=== PATIENT | male | born 1975 | race Two or more races ===

== ENCOUNTER 2022-07-02 13:44 | Inpatient (IN) | payer OTHER ==
[2022-07-02 14:18] VITALS: BMI 30.2
[2022-07-02] MEDS ORDERED: DICYCLOMINE HCL 10 MG CAPSULE PO PRN (15:04)
[2022-07-02] MEDS ORDERED: NICOTINE 10 MG CARTRIDGE (INHALER) IH PRN (15:04)
[2022-07-02] MEDS ORDERED: hydrOXYzine PAMOATE 25 MG CAPSULE (FP) PO PRN (15:04)
[2022-07-02] MEDS ORDERED: POLYETHYLENE GLYCOL (HEALTHYLAX) 3350 17 GM PACKET PO PRN (15:04)
[2022-07-02] MEDS ORDERED: MAGNESIUM HYDROX 2400MG/30ML ORAL SUSPENSION 30 ML CUP PO PRN (15:04)
[2022-07-02] MEDS ORDERED: NALOXONE HCL (KLOXXADO) 8 MG SPRAY NS PRN (15:04)
[2022-07-02] MEDS ORDERED: guaiFENesin 600 MG TABLET.ER (FP) PO PRN (15:04)
[2022-07-02] MEDS ORDERED: MAG HYDROX/AL HYDROX/SIMETH 30 ML UNIT-DOSE CUP PO PRN (15:04)
[2022-07-02] MEDS ORDERED: LOPERAMIDE HCL 2 MG CAPSULE PO PRN (15:04)
[2022-07-02] MEDS ORDERED: BENZONATATE 200 MG CAPSULE PO PRN (15:04)
[2022-07-02] MEDS ORDERED: BENZOCAINE/MENTHOL (CHLORASEPTIC ) LOZENGE MM PRN (15:04)
[2022-07-02] MEDS ORDERED: IBUPROFEN 400 MG TABLET (FP) PO PRN (15:04)
[2022-07-02] MEDS ORDERED: ONDANSETRON *ODT* 4 MG TABLET SL PRN (15:04)
[2022-07-02] MEDS ORDERED: LORazepam 1 MG TABLET PO PRN (15:04)
[2022-07-02] MEDS ORDERED: NALOXONE HCL 0.4 MG/ML VIAL IM PRN (15:04)
[2022-07-02] MEDS ORDERED: BISMUTH SUBSALICYLATE 524 MG/30 ML PO PRN (15:04)
[2022-07-02] MEDS ORDERED: ACETAMINOPHEN 325 MG TABLET (FP) PO PRN (15:04)
[2022-07-02] MEDS ORDERED: PATIENT'S OWN MEDICATION (NON-FORMULARY) (Insulin Lispro [Admelog Solostar] 100 UNIT/ML In SQ SCH (15:30)
[2022-07-02] MEDS ORDERED: INSULIN (NOVOLOG) ASPART 100 UNITS/ML 10ML VIAL SQ ONE (15:34)
[2022-07-02] MEDS ORDERED: PRENATAL VITAMINS W/ FOLIC ACID TABLET (FP) PO ONE (15:40)
[2022-07-02] MEDS ORDERED: NICOTINE 14 MG/24 HOURS TOPICAL PATCH TD SCH (15:45)
[2022-07-02] MEDS ORDERED: INSULIN (NOVOLOG) ASPART 100 UNITS/ML 10ML VIAL ONE ×2 (15:45→17:36)
[2022-07-02] MEDS: PRENATAL VITAMINS W/ FOLIC ACID TABLET (FP) PO SCH (15:50)
[2022-07-02] MEDS ORDERED: LORazepam 2 MG TABLET ONE (16:05)
[2022-07-02] MEDS: LORazepam 2 MG TABLET PO SCH ×2 (16:07→22:12)
[2022-07-02] MEDS: INSULIN SLIDING SCALE (NOVOLOG) 1 VIAL SQ SCH (17:44)
[2022-07-02] MEDS ORDERED: MELATONIN 5 MG TABLETS PO SCH (22:00)
[2022-07-02] MEDS ORDERED: PATIENT'S OWN MEDICATION (NON-FORMULARY) (Insulin Glargine,Hum.Rec.Anlog [Insulin Glargine PO SCH (22:00)
[2022-07-02] MEDS: CARVEDILOL 3.125 MG TABLET (FP) PO SCH (22:13)
[2022-07-02] MEDS: THIAMINE HCL 100 MG TABLET (FP) PO SCH (22:13)
[2022-07-02] MEDS: INSULIN (NOVOLOG) ASPART 100 UNITS/ML 10ML VIAL SQ ONE (23:04)
[2022-07-03] MEDS: INSULIN (NOVOLOG) ASPART 100 UNITS/ML 10ML VIAL SQ ONE (00:01)
[2022-07-03] MEDS: LORazepam 2 MG TABLET PO SCH ×4 (05:48→22:26)
[2022-07-03] MEDS: INSULIN SLIDING SCALE (NOVOLOG) 1 VIAL SQ SCH ×3 (06:24→16:59)
[2022-07-03] MEDS: ASPIRIN 81 MG CHEWABLE TABLETS PO SCH (10:30)
[2022-07-03] MEDS: FUROSEMIDE 20 MG TABLET (FP) PO SCH (10:30)
[2022-07-03] MEDS: PRENATAL VITAMINS W/ FOLIC ACID TABLET (FP) PO SCH (10:30)
[2022-07-03] MEDS: SPIRONOLACTONE 25 MG TABLET PO SCH (10:30)
[2022-07-03] MEDS: SENNOSIDES/DOCUSATE COMBO (SENNA PLUS) TABLET (UD) PO SCH (10:31)
[2022-07-03] MEDS: LISINOPRIL 10 MG TABLET PO SCH (10:31)
[2022-07-03] MEDS: CARVEDILOL 3.125 MG TABLET (FP) PO SCH ×2 (10:34→21:51)
[2022-07-03] MEDS: FOLIC ACID 1 MG TABLET (FP) PO SCH (12:03)
[2022-07-03 13:56] LABS: HEMATOCRIT 41.4 % (35.4-49); HEMOGLOBIN 14.3 GM/dL (11.7-16.9); MCH 30.3 pg (25.7-33.7); MCHC 34.5 g/dl (32.0-35.9); MEAN CELL VOLUME 87.7 fl (80-96); MEAN PLT VOLUME 10.1 fl (7.5-11.1); PLATELET COUNT 154 10^3/uL (134-434); RBC 4.71 M/mm3 (4.00-5.60); RDW 12.8 % (11.9-15.9); WHITE BLOOD COUNT 5.4 K/mm3 (4.0-10.0)
[2022-07-03 14:15] LABS: ALBUMIN 3.4 g/dl (3.4-5.0); CALCIUM 8.3 mg/dL (8.5-10.1)
[2022-07-03 14:16] LABS: BLOOD UREA NITROGEN 18.4 mg/dL (7-18)
[2022-07-03 14:20] LABS: BILIRUBIN,TOTAL 0.6 mg/dL (0.2-1); TOT PROT 6.5 g/dl (6.4-8.2)
[2022-07-03] MEDS: METHOCARBAMOL 500 MG TABLET PO PRN (18:25)
[2022-07-03] MEDS: IBUPROFEN 600 MG TABLET (FP) PO PRN (18:26)
[2022-07-03] MEDS: NICOTINE POLACRILEX 4 MG GUM BUC PRN ×2 (18:26→21:53)
[2022-07-03] MEDS: THIAMINE HCL 100 MG TABLET (FP) PO SCH (21:50)
[2022-07-03] MEDS: SUVOREXANT 10 MG TABLET PO PRN (21:56)
[2022-07-03] MEDS: INSULIN (LEVEMIR) 100 UNITS/ML UNITS SQ SCH (22:20)
[2022-07-04] MEDS: LORazepam 1 MG TABLET PO SCH ×4 (05:25→22:39)
[2022-07-04] MEDS: NICOTINE POLACRILEX 4 MG GUM BUC PRN ×2 (06:27→10:26)
[2022-07-04] MEDS: INSULIN SLIDING SCALE (NOVOLOG) 1 VIAL SQ SCH ×3 (06:29→17:18)
[2022-07-04] MEDS: CARVEDILOL 3.125 MG TABLET (FP) PO SCH ×2 (10:17→22:38)
[2022-07-04] MEDS: FOLIC ACID 1 MG TABLET (FP) PO SCH (10:17)
[2022-07-04] MEDS: PRENATAL VITAMINS W/ FOLIC ACID TABLET (FP) PO SCH (10:17)
[2022-07-04] MEDS: SENNOSIDES/DOCUSATE COMBO (SENNA PLUS) TABLET (UD) PO SCH (10:17)
[2022-07-04] MEDS: SPIRONOLACTONE 25 MG TABLET PO SCH (10:18)
[2022-07-04] MEDS: NICOTINE 14 MG/24 HOURS TOPICAL PATCH TD SCH (10:18)
[2022-07-04] MEDS: ASPIRIN 81 MG CHEWABLE TABLETS PO SCH (10:18)
[2022-07-04] MEDS: FUROSEMIDE 20 MG TABLET (FP) PO SCH (10:18)
[2022-07-04] MEDS: LISINOPRIL 10 MG TABLET PO SCH (10:18)
[2022-07-04] MEDS: METHOCARBAMOL 500 MG TABLET PO PRN ×2 (17:18→22:40)
[2022-07-04] MEDS: IBUPROFEN 600 MG TABLET (FP) PO PRN (20:51)
[2022-07-04] MEDS: THIAMINE HCL 100 MG TABLET (FP) PO SCH (22:38)
[2022-07-04] MEDS: SUVOREXANT 10 MG TABLET PO PRN (22:39)
[2022-07-04] MEDS: INSULIN (LEVEMIR) 100 UNITS/ML UNITS SQ SCH (22:40)
[2022-07-04] MEDS ORDERED: INSULIN (NOVOLOG) ASPART 100 UNITS/ML 10ML VIAL ONE (23:25)
[2022-07-05] MEDS ORDERED: LORazepam 0.5 MG TABLET PO PRN
[2022-07-05] MEDS: LORazepam 0.5 MG TABLET PO SCH ×4 (05:10→22:12)
[2022-07-05] MEDS: METHOCARBAMOL 500 MG TABLET PO PRN (05:14)
[2022-07-05] MEDS ORDERED: INSULIN (NOVOLOG) ASPART 100 UNITS/ML 10ML VIAL ONE (05:17)
[2022-07-05] MEDS: INSULIN SLIDING SCALE (NOVOLOG) 1 VIAL SQ SCH ×3 (06:58→17:42)
[2022-07-05] MEDS: PRENATAL VITAMINS W/ FOLIC ACID TABLET (FP) PO SCH (10:30)
[2022-07-05] MEDS: LISINOPRIL 10 MG TABLET PO SCH (10:30)
[2022-07-05] MEDS: FOLIC ACID 1 MG TABLET (FP) PO SCH (10:30)
[2022-07-05] MEDS: SPIRONOLACTONE 25 MG TABLET PO SCH (10:30)
[2022-07-05] MEDS: ASPIRIN 81 MG CHEWABLE TABLETS PO SCH (10:30)
[2022-07-05] MEDS: NICOTINE 14 MG/24 HOURS TOPICAL PATCH TD SCH (10:31)
[2022-07-05] MEDS: SENNOSIDES/DOCUSATE COMBO (SENNA PLUS) TABLET (UD) PO SCH (10:31)
[2022-07-05] MEDS: CARVEDILOL 3.125 MG TABLET (FP) PO SCH ×2 (10:31→22:11)
[2022-07-05] MEDS: NICOTINE POLACRILEX 4 MG GUM BUC PRN ×2 (10:36→20:34)
[2022-07-05] MEDS: FUROSEMIDE 20 MG TABLET (FP) PO SCH (11:38)
[2022-07-05 13:23] VITALS: RESP 18
[2022-07-05] MEDS: THIAMINE HCL 100 MG TABLET (FP) PO SCH (22:11)
[2022-07-05] MEDS: SUVOREXANT 10 MG TABLET PO PRN (22:13)
[2022-07-05] MEDS: INSULIN (LEVEMIR) 100 UNITS/ML UNITS SQ SCH (22:15)
[2022-07-06] MEDS: IBUPROFEN 600 MG TABLET (FP) PO PRN (03:11)
[2022-07-06] MEDS: METHOCARBAMOL 500 MG TABLET PO PRN (03:11)
[2022-07-06] MEDS ORDERED: LORazepam 0.5 MG TABLET PO ONE (05:00)
[2022-07-06] MEDS: NICOTINE POLACRILEX 4 MG GUM BUC PRN ×2 (06:12→10:09)
[2022-07-06] MEDS: INSULIN SLIDING SCALE (NOVOLOG) 1 VIAL SQ SCH ×2 (07:21→11:05)
[2022-07-06 09:49] VITALS: BP 120/78; PULSE 89; TEMP 98
[2022-07-06] MEDS: FOLIC ACID 1 MG TABLET (FP) PO SCH (09:54)
[2022-07-06] MEDS: SENNOSIDES/DOCUSATE COMBO (SENNA PLUS) TABLET (UD) PO SCH (09:54)
[2022-07-06] MEDS: SPIRONOLACTONE 25 MG TABLET PO SCH (09:54)
[2022-07-06] MEDS: ASPIRIN 81 MG CHEWABLE TABLETS PO SCH (09:54)
[2022-07-06] MEDS: PRENATAL VITAMINS W/ FOLIC ACID TABLET (FP) PO SCH (09:54)
[2022-07-06] MEDS: CARVEDILOL 3.125 MG TABLET (FP) PO SCH (09:54)
[2022-07-06] MEDS: LISINOPRIL 10 MG TABLET PO SCH (09:55)
[2022-07-06] MEDS: NICOTINE 14 MG/24 HOURS TOPICAL PATCH TD SCH (09:56)
[2022-07-06] MEDS: FUROSEMIDE 20 MG TABLET (FP) PO SCH (10:59)
== END 2022-07-06 12:20 | disposition other institution (70) | DRG 774 ==
LOC: YASAS 13:44 → Y6N 15:16
PROVIDERS: ADMIT Allergy & Immunology; ATTEND Surgery
PROC: HZ2ZZZZ Detoxification Services for Substance Abuse Treatment (ICD-10-PCS; principal; 2022-07-02)
DX: F10.230 Alcohol dependence with withdrawal, uncomplicated (principal); F14.20 Cocaine dependence, uncomplicated; F17.210 Nicotine dependence, cigarettes, uncomplicated; F19.282 Other psychoactive substance dependence with psychoactive substance-induced sleep disorder; F19.24 Other psychoactive substance dependence with psychoactive substance-induced mood disorder; I50.9 Heart failure, unspecified; E11.9 Type 2 diabetes mellitus without complications; Z79.4 Long term (current) use of insulin; Z86.59 Personal history of other mental and behavioral disorders
CPT/HCPCS: 36415; 80053; 82140; 82962; 85027; 86780; 93005; 93010; C9803-CS; U0003; U0005

== ENCOUNTER 2022-07-06 12:23 | Inpatient (IN) | payer OTHER ==
[2022-07-06] MEDS ORDERED: MAGNESIUM HYDROX 2400MG/30ML ORAL SUSPENSION 30 ML CUP PO PRN (14:11)
[2022-07-06] MEDS ORDERED: MAG HYDROX/AL HYDROX/SIMETH 30 ML UNIT-DOSE CUP PO PRN (14:11)
[2022-07-06] MEDS ORDERED: METHOCARBAMOL 500 MG TABLET PO PRN (14:11)
[2022-07-06] MEDS ORDERED: LOPERAMIDE HCL 2 MG CAPSULE PO PRN (14:11)
[2022-07-06] MEDS ORDERED: guaiFENesin 600 MG TABLET.ER (FP) PO PRN (14:11)
[2022-07-06] MEDS ORDERED: POLYETHYLENE GLYCOL (HEALTHYLAX) 3350 17 GM PACKET PO PRN (14:11)
[2022-07-06] MEDS ORDERED: BENZOCAINE/MENTHOL (CHLORASEPTIC ) LOZENGE MM PRN (14:11)
[2022-07-06] MEDS ORDERED: ACETAMINOPHEN 325 MG TABLET (FP) PO PRN (14:11)
[2022-07-06] MEDS ORDERED: NALOXONE HCL 0.4 MG/ML VIAL IVPUSH PRN (14:11)
[2022-07-06] MEDS ORDERED: NALOXONE HCL (KLOXXADO) 8 MG SPRAY NS PRN (14:11)
[2022-07-06] MEDS ORDERED: NICOTINE 21 MG/24 HOURS TOPICAL PATCH TD PRN (14:11)
[2022-07-06] MEDS ORDERED: BENZONATATE 200 MG CAPSULE PO PRN (14:11)
[2022-07-06] MEDS ORDERED: AMMONIUM LACTATE 12% LOTION 225 GM BOTTLE TP PRN (14:11)
[2022-07-06] MEDS ORDERED: INSULIN SLIDING SCALE (NOVOLOG) 1 VIAL SQ SCH (16:30)
[2022-07-06] MEDS ORDERED: INSULIN (NOVOLOG) ASPART 100 UNITS/ML 10ML VIAL ONE (16:33)
[2022-07-06] MEDS ORDERED: INSULIN (LEVEMIR) 100 UNITS/ML UNITS SQ ONE ×2 (21:00→23:16)
[2022-07-06] MEDS: MELATONIN 5 MG TABLETS PO SCH (21:11)
[2022-07-06] MEDS: INSULIN (LEVEMIR) 100 UNITS/ML UNITS SQ SCH (21:15)
[2022-07-06] MEDS: CARVEDILOL 3.125 MG TABLET (FP) PO SCH (21:15)
[2022-07-06] MEDS: INSULIN SLIDING SCALE (NOVOLOG) 1 VIAL SQ SCH ×2 (21:53→22:09)
[2022-07-06] MEDS ORDERED: SUVOREXANT 10 MG TABLET PO PRN (22:00)
[2022-07-06] MEDS ORDERED: THIAMINE HCL 100 MG TABLET (FP) PO SCH (22:00)
[2022-07-06 23:18] LABS: PH,URINE 6.5 (5.0-8.0); URINE APPEARANCE CLEAR; URINE BILIRUBIN NEGATIVE (NEGATIVE); URINE COLOR YELLOW; URINE GLUCOSE (UA) 2+ (NEGATIVE); URINE KETONE NEGATIVE (NEGATIVE); URINE LEUK ESTERASE NEGATIVE (NEGATIVE); URINE NITRITE NEGATIVE (NEGATIVE); URINE PROTEIN NEGATIVE (NEGATIVE); URINE UROBILINOGEN 0.2 mg/dL (0.2-1.0)
[2022-07-07] MEDS: INSULIN SLIDING SCALE (NOVOLOG) 1 VIAL SQ SCH ×4 (06:36→21:31)
[2022-07-07] MEDS: NICOTINE 10 MG CARTRIDGE (INHALER) IH PRN ×3 (06:50→21:15)
[2022-07-07] MEDS: NICOTINE POLACRILEX 4 MG GUM BUC PRN (06:52)
[2022-07-07] MEDS ORDERED: INSULIN (NOVOLOG) ASPART 100 UNITS/ML 10ML VIAL ONE ×3 (07:55→16:22)
[2022-07-07] MEDS: SPIRONOLACTONE 25 MG TABLET PO SCH (09:27)
[2022-07-07] MEDS: ASPIRIN 81 MG CHEWABLE TABLETS PO SCH (09:28)
[2022-07-07] MEDS: CARVEDILOL 3.125 MG TABLET (FP) PO SCH ×2 (09:28→21:11)
[2022-07-07] MEDS: FOLIC ACID 1 MG TABLET (FP) PO SCH (09:28)
[2022-07-07] MEDS: FUROSEMIDE 20 MG TABLET (FP) PO SCH (09:28)
[2022-07-07] MEDS: SENNOSIDES/DOCUSATE COMBO (SENNA PLUS) TABLET (UD) PO SCH (09:28)
[2022-07-07] MEDS: THIAMINE HCL 100 MG TABLET (FP) PO SCH (09:29)
[2022-07-07] MEDS: LISINOPRIL 10 MG TABLET PO SCH (09:29)
[2022-07-07] MEDS: PRENATAL VITAMINS W/ FOLIC ACID TABLET (FP) PO SCH (09:29)
[2022-07-07] MEDS ORDERED: PNEUMOC 20-VAL CONJ-DIP CRM/PF 0.5 ML SYRINGE IM ONE (12:00)
[2022-07-07] MEDS: hydrOXYzine PAMOATE 25 MG CAPSULE (FP) PO PRN ×2 (14:59→21:15)
[2022-07-07] MEDS ORDERED: INSULIN (NOVOLOG) ASPART 100 UNITS/ML 10ML VIAL SQ ONE (19:01)
[2022-07-07] MEDS: MELATONIN 5 MG TABLETS PO SCH (21:09)
[2022-07-07] MEDS: SUVOREXANT 15 MG TABLET PO PRN (21:10)
[2022-07-07] MEDS: INSULIN (LEVEMIR) 100 UNITS/ML UNITS SQ SCH (21:31)
[2022-07-07] MEDS ORDERED: INSULIN (LEVEMIR) 100 UNITS/ML UNITS SQ ONE (22:27)
[2022-07-08] MEDS ORDERED: INSULIN (NOVOLOG) ASPART 100 UNITS/ML 10ML VIAL ONE ×4 (06:10→23:16)
[2022-07-08] MEDS: hydrOXYzine PAMOATE 25 MG CAPSULE (FP) PO PRN ×2 (06:10→18:17)
[2022-07-08] MEDS: INSULIN SLIDING SCALE (NOVOLOG) 1 VIAL SQ SCH ×4 (06:10→21:18)
[2022-07-08] MEDS: FOLIC ACID 1 MG TABLET (FP) PO SCH (09:55)
[2022-07-08] MEDS: CARVEDILOL 3.125 MG TABLET (FP) PO SCH ×2 (09:55→21:14)
[2022-07-08] MEDS: THIAMINE HCL 100 MG TABLET (FP) PO SCH (09:55)
[2022-07-08] MEDS: ASPIRIN 81 MG CHEWABLE TABLETS PO SCH (09:55)
[2022-07-08] MEDS: LISINOPRIL 10 MG TABLET PO SCH (09:55)
[2022-07-08] MEDS: SPIRONOLACTONE 25 MG TABLET PO SCH (09:55)
[2022-07-08] MEDS: PRENATAL VITAMINS W/ FOLIC ACID TABLET (FP) PO SCH (09:56)
[2022-07-08] MEDS: SENNOSIDES/DOCUSATE COMBO (SENNA PLUS) TABLET (UD) PO SCH (09:56)
[2022-07-08] MEDS: FUROSEMIDE 20 MG TABLET (FP) PO SCH (09:56)
[2022-07-08] MEDS: NICOTINE 10 MG CARTRIDGE (INHALER) IH PRN ×2 (09:57→18:17)
[2022-07-08 12:19] LABS: HIV INTERPRETATION NEGATIVE (NEGATIVE)
[2022-07-08] MEDS ORDERED: INSULIN (LEVEMIR) 100 UNITS/ML UNITS SQ ONE ×2 (16:46→23:16)
[2022-07-08] MEDS: MELATONIN 5 MG TABLETS PO SCH (21:14)
[2022-07-08] MEDS: SUVOREXANT 15 MG TABLET PO PRN (21:15)
[2022-07-08] MEDS: INSULIN (LEVEMIR) 100 UNITS/ML UNITS SQ SCH (21:17)
[2022-07-09] MEDS ORDERED: INSULIN (NOVOLOG) ASPART 100 UNITS/ML 10ML VIAL ONE ×4 (06:29→21:38)
[2022-07-09] MEDS: INSULIN SLIDING SCALE (NOVOLOG) 1 VIAL SQ SCH ×4 (06:29→21:16)
[2022-07-09] MEDS: NICOTINE 10 MG CARTRIDGE (INHALER) IH PRN ×3 (06:31→15:00)
[2022-07-09] MEDS: hydrOXYzine PAMOATE 25 MG CAPSULE (FP) PO PRN ×3 (06:31→21:14)
[2022-07-09] MEDS: SPIRONOLACTONE 25 MG TABLET PO SCH (10:08)
[2022-07-09] MEDS: LISINOPRIL 10 MG TABLET PO SCH (10:08)
[2022-07-09] MEDS: SENNOSIDES/DOCUSATE COMBO (SENNA PLUS) TABLET (UD) PO SCH (10:08)
[2022-07-09] MEDS: CARVEDILOL 3.125 MG TABLET (FP) PO SCH ×2 (10:08→21:13)
[2022-07-09] MEDS: FUROSEMIDE 20 MG TABLET (FP) PO SCH (10:08)
[2022-07-09] MEDS: THIAMINE HCL 100 MG TABLET (FP) PO SCH (10:08)
[2022-07-09] MEDS: PRENATAL VITAMINS W/ FOLIC ACID TABLET (FP) PO SCH (10:08)
[2022-07-09] MEDS: ASPIRIN 81 MG CHEWABLE TABLETS PO SCH (10:08)
[2022-07-09] MEDS: FOLIC ACID 1 MG TABLET (FP) PO SCH (10:08)
[2022-07-09] MEDS: NICOTINE POLACRILEX 4 MG GUM BUC PRN ×2 (10:23→15:01)
[2022-07-09] MEDS: SUVOREXANT 15 MG TABLET PO PRN (21:13)
[2022-07-09] MEDS: MELATONIN 5 MG TABLETS PO SCH (21:13)
[2022-07-09] MEDS: INSULIN (LEVEMIR) 100 UNITS/ML UNITS SQ SCH (21:16)
[2022-07-09] MEDS ORDERED: INSULIN (LEVEMIR) 100 UNITS/ML UNITS SQ ONE (21:38)
[2022-07-10] MEDS: INSULIN SLIDING SCALE (NOVOLOG) 1 VIAL SQ SCH ×4 (06:11→21:22)
[2022-07-10] MEDS: NICOTINE 10 MG CARTRIDGE (INHALER) IH PRN ×4 (06:14→21:25)
[2022-07-10] MEDS: hydrOXYzine PAMOATE 25 MG CAPSULE (FP) PO PRN ×2 (06:14→21:21)
[2022-07-10] MEDS: NICOTINE POLACRILEX 4 MG GUM BUC PRN (06:15)
[2022-07-10] MEDS ORDERED: INSULIN (NOVOLOG) ASPART 100 UNITS/ML 10ML VIAL ONE ×5 (08:26→21:37)
[2022-07-10] MEDS: guaiFENesin 200 MG/10 ML 10 ML UNIT-DOSE CUPS PO PRN ×2 (09:40→21:52)
[2022-07-10] MEDS: THIAMINE HCL 100 MG TABLET (FP) PO SCH (09:41)
[2022-07-10] MEDS: CARVEDILOL 3.125 MG TABLET (FP) PO SCH ×2 (09:41→21:21)
[2022-07-10] MEDS: SPIRONOLACTONE 25 MG TABLET PO SCH (09:41)
[2022-07-10] MEDS: ASPIRIN 81 MG CHEWABLE TABLETS PO SCH (09:41)
[2022-07-10] MEDS: LISINOPRIL 10 MG TABLET PO SCH (09:41)
[2022-07-10] MEDS: FUROSEMIDE 20 MG TABLET (FP) PO SCH (09:41)
[2022-07-10] MEDS: FOLIC ACID 1 MG TABLET (FP) PO SCH (09:41)
[2022-07-10] MEDS: SENNOSIDES/DOCUSATE COMBO (SENNA PLUS) TABLET (UD) PO SCH (09:42)
[2022-07-10] MEDS: PRENATAL VITAMINS W/ FOLIC ACID TABLET (FP) PO SCH (09:42)
[2022-07-10] MEDS: LORATADINE 10 MG TABLET PO SCH (11:54)
[2022-07-10] MEDS: IBUPROFEN 600 MG TABLET (FP) PO PRN (12:01)
[2022-07-10] MEDS: MELATONIN 5 MG TABLETS PO SCH (21:22)
[2022-07-10] MEDS: INSULIN (LEVEMIR) 100 UNITS/ML UNITS SQ SCH (21:22)
[2022-07-10] MEDS ORDERED: INSULIN (LEVEMIR) 100 UNITS/ML UNITS SQ ONE (21:36)
[2022-07-10] MEDS: IBUPROFEN 400 MG TABLET (FP) PO PRN (21:52)
[2022-07-11] MEDS: NICOTINE 10 MG CARTRIDGE (INHALER) IH PRN ×3 (06:36→21:26)
[2022-07-11] MEDS: hydrOXYzine PAMOATE 25 MG CAPSULE (FP) PO PRN ×2 (06:36→21:23)
[2022-07-11] MEDS: IBUPROFEN 600 MG TABLET (FP) PO PRN ×2 (06:36→21:24)
[2022-07-11] MEDS: INSULIN SLIDING SCALE (NOVOLOG) 1 VIAL SQ SCH ×4 (07:49→21:22)
[2022-07-11] MEDS: SPIRONOLACTONE 25 MG TABLET PO SCH (09:54)
[2022-07-11] MEDS: FOLIC ACID 1 MG TABLET (FP) PO SCH (09:54)
[2022-07-11] MEDS: LORATADINE 10 MG TABLET PO SCH (09:54)
[2022-07-11] MEDS: ASPIRIN 81 MG CHEWABLE TABLETS PO SCH (09:54)
[2022-07-11] MEDS: CARVEDILOL 3.125 MG TABLET (FP) PO SCH ×2 (09:55→21:22)
[2022-07-11] MEDS: SENNOSIDES/DOCUSATE COMBO (SENNA PLUS) TABLET (UD) PO SCH (09:55)
[2022-07-11] MEDS: FUROSEMIDE 20 MG TABLET (FP) PO SCH (09:55)
[2022-07-11] MEDS: LISINOPRIL 10 MG TABLET PO SCH (09:55)
[2022-07-11] MEDS: PRENATAL VITAMINS W/ FOLIC ACID TABLET (FP) PO SCH (09:56)
[2022-07-11] MEDS: THIAMINE HCL 100 MG TABLET (FP) PO SCH (09:57)
[2022-07-11] MEDS: NICOTINE POLACRILEX 4 MG GUM BUC PRN (10:16)
[2022-07-11] MEDS ORDERED: INSULIN (NOVOLOG) ASPART 100 UNITS/ML 10ML VIAL ONE ×2 (11:58→16:50)
[2022-07-11] MEDS: guaiFENesin 200 MG/10 ML 10 ML UNIT-DOSE CUPS PO PRN (11:59)
[2022-07-11] MEDS: SUVOREXANT 15 MG TABLET PO PRN (21:23)
[2022-07-11] MEDS: INSULIN (LEVEMIR) 100 UNITS/ML UNITS SQ SCH (21:45)
[2022-07-11] MEDS: MELATONIN 5 MG TABLETS PO SCH (21:45)
[2022-07-12] MEDS: INSULIN SLIDING SCALE (NOVOLOG) 1 VIAL SQ SCH ×4 (06:18→21:02)
[2022-07-12] MEDS: NICOTINE 10 MG CARTRIDGE (INHALER) IH PRN ×3 (06:22→21:05)
[2022-07-12] MEDS: hydrOXYzine PAMOATE 25 MG CAPSULE (FP) PO PRN ×2 (06:22→21:06)
[2022-07-12] MEDS: NICOTINE POLACRILEX 4 MG GUM BUC PRN ×2 (06:22→09:32)
[2022-07-12] MEDS ORDERED: INSULIN (NOVOLOG) ASPART 100 UNITS/ML 10ML VIAL ONE ×3 (07:03→16:42)
[2022-07-12] MEDS: guaiFENesin 200 MG/10 ML 10 ML UNIT-DOSE CUPS PO PRN (09:28)
[2022-07-12] MEDS: COLLOIDAL OATMEAL 1 BAR EACH TP PRN (09:29)
[2022-07-12] MEDS: SENNOSIDES/DOCUSATE COMBO (SENNA PLUS) TABLET (UD) PO SCH (09:29)
[2022-07-12] MEDS: THIAMINE HCL 100 MG TABLET (FP) PO SCH (09:30)
[2022-07-12] MEDS: SPIRONOLACTONE 25 MG TABLET PO SCH (09:30)
[2022-07-12] MEDS: CARVEDILOL 3.125 MG TABLET (FP) PO SCH ×2 (09:30→21:04)
[2022-07-12] MEDS: ASPIRIN 81 MG CHEWABLE TABLETS PO SCH (09:30)
[2022-07-12] MEDS: FUROSEMIDE 20 MG TABLET (FP) PO SCH (09:30)
[2022-07-12] MEDS: FOLIC ACID 1 MG TABLET (FP) PO SCH (09:30)
[2022-07-12] MEDS: LISINOPRIL 10 MG TABLET PO SCH (09:31)
[2022-07-12] MEDS: PRENATAL VITAMINS W/ FOLIC ACID TABLET (FP) PO SCH (09:31)
[2022-07-12] MEDS: IBUPROFEN 600 MG TABLET (FP) PO PRN ×2 (09:31→18:02)
[2022-07-12] MEDS: LORATADINE 10 MG TABLET PO SCH (09:31)
[2022-07-12] MEDS: MELATONIN 5 MG TABLETS PO SCH (21:05)
[2022-07-12] MEDS: INSULIN (LEVEMIR) 100 UNITS/ML UNITS SQ SCH (21:05)
[2022-07-13] MEDS: INSULIN SLIDING SCALE (NOVOLOG) 1 VIAL SQ SCH ×4 (06:31→21:59)
[2022-07-13] MEDS: NICOTINE 10 MG CARTRIDGE (INHALER) IH PRN ×3 (06:33→22:11)
[2022-07-13] MEDS: hydrOXYzine PAMOATE 25 MG CAPSULE (FP) PO PRN ×2 (06:33→22:05)
[2022-07-13] MEDS: IBUPROFEN 600 MG TABLET (FP) PO PRN ×2 (06:34→18:17)
[2022-07-13] MEDS: NICOTINE POLACRILEX 4 MG GUM BUC PRN ×3 (06:34→22:12)
[2022-07-13] MEDS ORDERED: BENZOCAINE 20 % GEL TUBE MM PRN (08:33)
[2022-07-13] MEDS ORDERED: INSULIN (NOVOLOG) ASPART 100 UNITS/ML 10ML VIAL ONE ×3 (08:39→16:43)
[2022-07-13] MEDS: LORATADINE 10 MG TABLET PO SCH (10:10)
[2022-07-13] MEDS: ASPIRIN 81 MG CHEWABLE TABLETS PO SCH (10:10)
[2022-07-13] MEDS: FUROSEMIDE 20 MG TABLET (FP) PO SCH (10:10)
[2022-07-13] MEDS: LISINOPRIL 10 MG TABLET PO SCH (10:10)
[2022-07-13] MEDS: SENNOSIDES/DOCUSATE COMBO (SENNA PLUS) TABLET (UD) PO SCH (10:10)
[2022-07-13] MEDS: PRENATAL VITAMINS W/ FOLIC ACID TABLET (FP) PO SCH (10:10)
[2022-07-13] MEDS: CARVEDILOL 3.125 MG TABLET (FP) PO SCH ×2 (10:10→21:56)
[2022-07-13] MEDS: THIAMINE HCL 100 MG TABLET (FP) PO SCH (10:10)
[2022-07-13] MEDS: SPIRONOLACTONE 25 MG TABLET PO SCH (10:10)
[2022-07-13] MEDS: FOLIC ACID 1 MG TABLET (FP) PO SCH (10:59)
[2022-07-13] MEDS: guaiFENesin 200 MG/10 ML 10 ML UNIT-DOSE CUPS PO PRN (15:13)
[2022-07-13] MEDS: IBUPROFEN 400 MG TABLET (FP) PO PRN (21:57)
[2022-07-13] MEDS: MELATONIN 5 MG TABLETS PO SCH (21:58)
[2022-07-13] MEDS: SUVOREXANT 15 MG TABLET PO PRN (21:59)
[2022-07-13] MEDS: INSULIN (LEVEMIR) 100 UNITS/ML UNITS SQ SCH (22:01)
[2022-07-14] MEDS: INSULIN SLIDING SCALE (NOVOLOG) 1 VIAL SQ SCH ×4 (06:43→21:25)
[2022-07-14] MEDS ORDERED: INSULIN (NOVOLOG) ASPART 100 UNITS/ML 10ML VIAL ONE ×4 (06:43→21:29)
[2022-07-14] MEDS: NICOTINE 10 MG CARTRIDGE (INHALER) IH PRN ×3 (08:53→21:26)
[2022-07-14] MEDS: PRENATAL VITAMINS W/ FOLIC ACID TABLET (FP) PO SCH (09:43)
[2022-07-14] MEDS: LISINOPRIL 10 MG TABLET PO SCH (09:44)
[2022-07-14] MEDS: ASPIRIN 81 MG CHEWABLE TABLETS PO SCH (09:44)
[2022-07-14] MEDS: SENNOSIDES/DOCUSATE COMBO (SENNA PLUS) TABLET (UD) PO SCH (09:44)
[2022-07-14] MEDS: FOLIC ACID 1 MG TABLET (FP) PO SCH (09:44)
[2022-07-14] MEDS: LORATADINE 10 MG TABLET PO SCH (09:44)
[2022-07-14] MEDS: THIAMINE HCL 100 MG TABLET (FP) PO SCH (09:44)
[2022-07-14] MEDS: FUROSEMIDE 20 MG TABLET (FP) PO SCH (09:44)
[2022-07-14] MEDS: SPIRONOLACTONE 25 MG TABLET PO SCH (09:44)
[2022-07-14] MEDS: CARVEDILOL 3.125 MG TABLET (FP) PO SCH ×2 (09:44→21:21)
[2022-07-14] MEDS: IBUPROFEN 600 MG TABLET (FP) PO PRN (09:46)
[2022-07-14] MEDS: hydrOXYzine PAMOATE 25 MG CAPSULE (FP) PO PRN ×2 (09:47→21:21)
[2022-07-14] MEDS: COLLOIDAL OATMEAL 1 BAR EACH TP PRN (15:36)
[2022-07-14] MEDS: guaiFENesin 200 MG/10 ML 10 ML UNIT-DOSE CUPS PO PRN (19:37)
[2022-07-14] MEDS: SUVOREXANT 15 MG TABLET PO PRN (21:24)
[2022-07-14] MEDS: MELATONIN 5 MG TABLETS PO SCH (21:24)
[2022-07-14] MEDS: INSULIN (LEVEMIR) 100 UNITS/ML UNITS SQ SCH (21:25)
[2022-07-14] MEDS ORDERED: INSULIN (LEVEMIR) 100 UNITS/ML UNITS SQ ONE (21:30)
[2022-07-15] MEDS: hydrOXYzine PAMOATE 25 MG CAPSULE (FP) PO PRN ×3 (02:13→21:19)
[2022-07-15] MEDS: INSULIN SLIDING SCALE (NOVOLOG) 1 VIAL SQ SCH ×4 (06:32→21:24)
[2022-07-15] MEDS ORDERED: INSULIN (NOVOLOG) ASPART 100 UNITS/ML 10ML VIAL ONE ×4 (06:33→22:27)
[2022-07-15] MEDS: NICOTINE POLACRILEX 4 MG GUM BUC PRN ×2 (06:33→10:00)
[2022-07-15] MEDS: NICOTINE 10 MG CARTRIDGE (INHALER) IH PRN ×3 (06:34→21:23)
[2022-07-15] MEDS: ASPIRIN 81 MG CHEWABLE TABLETS PO SCH (09:57)
[2022-07-15] MEDS: LORATADINE 10 MG TABLET PO SCH (09:58)
[2022-07-15] MEDS: FOLIC ACID 1 MG TABLET (FP) PO SCH (09:58)
[2022-07-15] MEDS: THIAMINE HCL 100 MG TABLET (FP) PO SCH (09:58)
[2022-07-15] MEDS: SENNOSIDES/DOCUSATE COMBO (SENNA PLUS) TABLET (UD) PO SCH (09:58)
[2022-07-15] MEDS: PRENATAL VITAMINS W/ FOLIC ACID TABLET (FP) PO SCH (09:59)
[2022-07-15] MEDS: FUROSEMIDE 20 MG TABLET (FP) PO SCH (10:26)
[2022-07-15] MEDS: LISINOPRIL 10 MG TABLET PO SCH (10:27)
[2022-07-15] MEDS: SPIRONOLACTONE 25 MG TABLET PO SCH (10:27)
[2022-07-15] MEDS: CARVEDILOL 3.125 MG TABLET (FP) PO SCH ×2 (10:27→21:19)
[2022-07-15] MEDS: IBUPROFEN 600 MG TABLET (FP) PO PRN (10:36)
[2022-07-15] MEDS: MELATONIN 5 MG TABLETS PO SCH (21:18)
[2022-07-15] MEDS: SUVOREXANT 15 MG TABLET PO PRN (21:19)
[2022-07-15] MEDS: INSULIN (LEVEMIR) 100 UNITS/ML UNITS SQ SCH (21:23)
[2022-07-15] MEDS ORDERED: INSULIN (LEVEMIR) 100 UNITS/ML UNITS SQ ONE (22:27)
[2022-07-16] MEDS: hydrOXYzine PAMOATE 25 MG CAPSULE (FP) PO PRN ×2 (06:05→16:53)
[2022-07-16] MEDS: INSULIN SLIDING SCALE (NOVOLOG) 1 VIAL SQ SCH ×4 (06:05→21:25)
[2022-07-16] MEDS ORDERED: INSULIN (NOVOLOG) ASPART 100 UNITS/ML 10ML VIAL ONE ×4 (06:06→21:29)
[2022-07-16] MEDS: NICOTINE POLACRILEX 4 MG GUM BUC PRN ×4 (06:07→16:52)
[2022-07-16] MEDS: NICOTINE 10 MG CARTRIDGE (INHALER) IH PRN ×4 (06:07→21:26)
[2022-07-16 09:26] VITALS: RESP 18
[2022-07-16] MEDS: LISINOPRIL 10 MG TABLET PO SCH (09:48)
[2022-07-16] MEDS: FOLIC ACID 1 MG TABLET (FP) PO SCH (09:48)
[2022-07-16] MEDS: SPIRONOLACTONE 25 MG TABLET PO SCH (09:48)
[2022-07-16] MEDS: ASPIRIN 81 MG CHEWABLE TABLETS PO SCH (09:48)
[2022-07-16] MEDS: THIAMINE HCL 100 MG TABLET (FP) PO SCH (09:49)
[2022-07-16] MEDS: CARVEDILOL 3.125 MG TABLET (FP) PO SCH ×2 (09:49→21:26)
[2022-07-16] MEDS: LORATADINE 10 MG TABLET PO SCH (09:49)
[2022-07-16] MEDS: FUROSEMIDE 20 MG TABLET (FP) PO SCH (09:50)
[2022-07-16] MEDS: PRENATAL VITAMINS W/ FOLIC ACID TABLET (FP) PO SCH (09:50)
[2022-07-16] MEDS: SENNOSIDES/DOCUSATE COMBO (SENNA PLUS) TABLET (UD) PO SCH (09:50)
[2022-07-16] MEDS: IBUPROFEN 600 MG TABLET (FP) PO PRN ×2 (09:55→18:39)
[2022-07-16] MEDS: MELATONIN 5 MG TABLETS PO SCH (21:23)
[2022-07-16] MEDS: INSULIN (LEVEMIR) 100 UNITS/ML UNITS SQ SCH (21:26)
[2022-07-16] MEDS: SUVOREXANT 15 MG TABLET PO PRN (21:26)
[2022-07-16] MEDS ORDERED: INSULIN (LEVEMIR) 100 UNITS/ML UNITS SQ ONE (21:30)
[2022-07-17] MEDS: INSULIN SLIDING SCALE (NOVOLOG) 1 VIAL SQ SCH (06:36)
[2022-07-17] MEDS: NICOTINE 10 MG CARTRIDGE (INHALER) IH PRN (06:37)
[2022-07-17] MEDS: NICOTINE POLACRILEX 4 MG GUM BUC PRN (06:38)
[2022-07-17 06:45] VITALS: TEMP 97.5
[2022-07-17] MEDS ORDERED: INSULIN (NOVOLOG) ASPART 100 UNITS/ML 10ML VIAL ONE (07:16)
[2022-07-17 08:54] VITALS: BP 126/85; PULSE 111
[2022-07-17] MEDS: ASPIRIN 81 MG CHEWABLE TABLETS PO SCH (09:01)
[2022-07-17] MEDS: SPIRONOLACTONE 25 MG TABLET PO SCH (09:01)
[2022-07-17] MEDS: FOLIC ACID 1 MG TABLET (FP) PO SCH (09:01)
[2022-07-17] MEDS: CARVEDILOL 3.125 MG TABLET (FP) PO SCH (09:01)
[2022-07-17] MEDS: THIAMINE HCL 100 MG TABLET (FP) PO SCH (09:01)
[2022-07-17] MEDS: PRENATAL VITAMINS W/ FOLIC ACID TABLET (FP) PO SCH (09:01)
[2022-07-17] MEDS: LISINOPRIL 10 MG TABLET PO SCH (09:01)
[2022-07-17] MEDS: FUROSEMIDE 20 MG TABLET (FP) PO SCH (09:02)
[2022-07-17] MEDS: SENNOSIDES/DOCUSATE COMBO (SENNA PLUS) TABLET (UD) PO SCH (09:02)
[2022-07-17] MEDS: LORATADINE 10 MG TABLET PO SCH (09:02)
== END 2022-07-17 09:04 | disposition home or self-care (01) | DRG 772 ==
LOC: YASAS 12:23 → Y3E 12:24
PROVIDERS: ADMIT Allergy & Immunology; ATTEND Psychiatry & Neurology Pain Medicine
PROC: HZ42ZZZ Group Counseling for Substance Abuse Treatment, Cognitive-Behavioral (ICD-10-PCS; principal; 2022-07-06)
DX: F10.20 Alcohol dependence, uncomplicated (principal); F14.20 Cocaine dependence, uncomplicated; F17.210 Nicotine dependence, cigarettes, uncomplicated; F19.282 Other psychoactive substance dependence with psychoactive substance-induced sleep disorder; F19.24 Other psychoactive substance dependence with psychoactive substance-induced mood disorder; E78.5 Hyperlipidemia, unspecified; E11.9 Type 2 diabetes mellitus without complications; Z79.4 Long term (current) use of insulin; I50.9 Heart failure, unspecified; K08.89 Other specified disorders of teeth and supporting structures; R05.9 Cough, unspecified; R30.0 Dysuria
CPT/HCPCS: 36415; 81003; 82962; 86632; 86803; 87086; 87389; 90677

== ENCOUNTER 2023-03-26 13:53 | Inpatient (IN) | payer OTHER ==
[2023-03-26 14:27] VITALS: BMI 28.6
[2023-03-26] MEDS: hydrOXYzine PAMOATE 25 MG CAPSULE (FP) PO PRN (17:29)
[2023-03-26] MEDS ORDERED: hydrOXYzine PAMOATE 25 MG CAPSULE (FP) PO ONE (17:30)
[2023-03-26] MEDS ORDERED: MAGNESIUM HYDROX 2400MG/30ML ORAL SUSPENSION 30 ML CUP PO PRN (18:06)
[2023-03-26] MEDS ORDERED: P-EPHED 60MG/TRIPROLIDI 2.5MG TABLET PO PRN (18:06)
[2023-03-26] MEDS ORDERED: guaiFENesin 600 MG TABLET.ER (FP) PO PRN (18:06)
[2023-03-26] MEDS ORDERED: LOPERAMIDE HCL 2 MG CAPSULE PO PRN (18:06)
[2023-03-26] MEDS ORDERED: IBUPROFEN 400 MG TABLET (FP) PO PRN (18:06)
[2023-03-26] MEDS ORDERED: BENZONATATE 200 MG CAPSULE PO PRN (18:06)
[2023-03-26] MEDS ORDERED: ACETAMINOPHEN 325 MG TABLET (FP) PO PRN (18:06)
[2023-03-26] MEDS ORDERED: POLYETHYLENE GLYCOL (HEALTHYLAX) 3350 17 GM PACKET PO PRN (18:06)
[2023-03-26] MEDS ORDERED: IBUPROFEN 600 MG TABLET (FP) PO PRN (18:06)
[2023-03-26] MEDS ORDERED: MAG HYDROX/AL HYDROX/SIMETH 30 ML UNIT-DOSE CUP PO PRN (18:06)
[2023-03-26] MEDS: INSULIN ASPART SLIDING SCALE (NOVOLOG) 1 VIAL SQ SCH (19:26)
[2023-03-26] MEDS: THIAMINE HCL 100 MG TABLET (FP) PO SCH (21:36)
[2023-03-26] MEDS: MELATONIN 5 MG TABLETS PO SCH (21:36)
[2023-03-27] MEDS: PRENATAL VITAMINS W/ FOLIC ACID TABLET (FP) PO SCH (10:52)
[2023-03-27] MEDS: NICOTINE POLACRILEX 2 MG LOZENGE BC PRN (10:56)
[2023-03-27] MEDS ORDERED: THIAMINE HCL 100 MG TABLET (FP) PO SCH (11:15)
[2023-03-27] MEDS: CARVEDILOL 3.125 MG TABLET (FP) PO SCH (12:40)
[2023-03-27] MEDS: ASPIRIN 81 MG CHEWABLE TABLETS PO SCH (12:40)
[2023-03-27] MEDS: LISINOPRIL 10 MG TABLET PO SCH (12:40)
[2023-03-27] MEDS: FOLIC ACID 1 MG TABLET (FP) PO SCH (12:40)
[2023-03-27] MEDS: FUROSEMIDE 20 MG TABLET (FP) PO SCH (12:41)
[2023-03-27] MEDS: SPIRONOLACTONE 25 MG TABLET PO SCH (12:42)
[2023-03-27] MEDS: DOCUSATE SODIUM PO SCH (12:59)
[2023-03-27] MEDS: [UNRECOGNIZED DRUG - OTHER] PO SCH (12:59)
[2023-03-27] MEDS: SENNOSIDES PO SCH (12:59)
[2023-03-27] MEDS ORDERED: PATIENT'S OWN MEDICATION (NON-FORMULARY) (Insulin Lispro [Admelog Solostar] 100 UNIT/ML In SQ SCH (14:00)
[2023-03-27 14:35] LABS: HEMATOCRIT 39.5 % (35.4-49); HEMOGLOBIN 13.5 GM/dL (11.7-16.9); MCH 31.3 pg (25.7-33.7); MCHC 34.3 g/dl (32.0-35.9); MEAN CELL VOLUME 91.2 fl (80-96); MEAN PLT VOLUME 9.3 fl (7.5-11.1); PLATELET COUNT 168 10^3/uL (134-434); RBC 4.33 M/mm3 (4.00-5.60); RDW 13.5 % (11.9-15.9); WHITE BLOOD COUNT 6.8 K/mm3 (4.0-10.0)
[2023-03-27 14:38] LABS: POTASSIUM 4.2 mmol/L (3.5-5.1)
[2023-03-27 15:16] LABS: CALCIUM 8.5 mg/dL (8.5-10.1)
[2023-03-27 15:17] LABS: BLOOD UREA NITROGEN 23.5 mg/dL (7-18); CREATININE 0.9 mg/dL (0.55-1.3)
[2023-03-27 15:19] LABS: BILIRUBIN,TOTAL 0.2 mg/dL (0.2-1); TOT PROT 5.9 g/dl (6.4-8.2)
[2023-03-27] MEDS: hydrOXYzine PAMOATE 25 MG CAPSULE (FP) PO ONE (16:20)
[2023-03-27] MEDS: DOCUSATE SODIUM 100 MG CAPSULE (FP) PO SCH (21:22)
[2023-03-27] MEDS: SENNOSIDES 8.6MG TABLET (FP) PO SCH (21:22)
[2023-03-27] MEDS: MIRTAZAPINE 15 MG TABLET (FP) PO SCH (21:22)
[2023-03-28 14:29] LABS: PH,URINE 5.5 (5.0-8.0); URINE APPEARANCE CLEAR; URINE BILIRUBIN NEGATIVE (NEGATIVE); URINE COLOR YELLOW; URINE GLUCOSE (UA) NEGATIVE (NEGATIVE); URINE KETONE NEGATIVE (NEGATIVE); URINE LEUK ESTERASE NEGATIVE (NEGATIVE); URINE NITRITE NEGATIVE (NEGATIVE); URINE PROTEIN NEGATIVE (NEGATIVE); URINE UROBILINOGEN 0.2 mg/dL (0.2-1.0)
[2023-03-28] MEDS: NICOTINE 21 MG/24 HOURS TOPICAL PATCH TD SCH (15:04)
[2023-03-29] MEDS: POLYETHYLENE GLYCOL (HEALTHYLAX) 3350 17 GM PACKET PO SCH (12:06)
[2023-03-29] MEDS: NALTREXONE HCL 50 MG TABLET PO SCH (12:12)
[2023-03-29] MEDS: NICOTINE POLACRILEX 4 MG LOZENGE BC PRN (18:26)
[2023-03-30] MEDS: NALTREXONE HCL 50 MG TABLET PO SCH (09:39)
[2023-03-30] MEDS: BACLOFEN 10 MG TABLET (FP) PO SCH (09:39)
[2023-03-30 11:54] LABS: INR 0.99 (0.83-1.09); PROTHROMBIN TIME (PATIENT) 11.5 SEC (9.7-13.0)
[2023-03-30 12:49] LABS: HIV INTERPRETATION NEGATIVE (NEGATIVE)
[2023-03-31] MEDS: LACTULOSE 20 GM/30 ML UDC (FOR ORAL USE ONLY) PO SCH (14:35)
[2023-03-31] MEDS: BENZOCAINE/MENTHOL (CHLORASEPTIC ) LOZENGE MM PRN (15:21)
[2023-03-31] MEDS: NICOTINE POLACRILEX 4 MG LOZENGE BC PRN (16:18)
[2023-04-01] MEDS ORDERED: INSULIN ASPART SLIDING SCALE (NOVOLOG) 1 VIAL SQ ONE (11:54)
[2023-04-06] MEDS ORDERED: INSULIN ASPART SLIDING SCALE (NOVOLOG) 1 VIAL SQ ONE (06:17)
[2023-04-07] MEDS ORDERED: INSULIN ASPART SLIDING SCALE (NOVOLOG) 1 VIAL SQ ONE (06:05)
[2023-04-08] MEDS: MELATONIN 5 MG TABLETS PO ONE (03:26)
[2023-04-08 07:21] VITALS: BP 138/92; PULSE 102; RESP 17; TEMP 97.5
== END 2023-04-08 09:35 | disposition home or self-care (01) | DRG 772 ==
LOC: YASAS 13:53 → Y3W 18:18
PROVIDERS: ADMIT Allergy & Immunology; ATTEND Psychiatry & Neurology Pain Medicine
PROC: HZ42ZZZ Group Counseling for Substance Abuse Treatment, Cognitive-Behavioral (ICD-10-PCS; principal; 2023-03-26)
DX: F10.20 Alcohol dependence, uncomplicated (principal); F14.20 Cocaine dependence, uncomplicated; F17.210 Nicotine dependence, cigarettes, uncomplicated; F19.282 Other psychoactive substance dependence with psychoactive substance-induced sleep disorder; E72.20 Disorder of urea cycle metabolism, unspecified; I11.0 Hypertensive heart disease with heart failure; I50.9 Heart failure, unspecified; E78.5 Hyperlipidemia, unspecified; E11.9 Type 2 diabetes mellitus without complications; Z79.4 Long term (current) use of insulin; R30.0 Dysuria
CPT/HCPCS: 0241U-QW; 36415; 80053; 81003; 82140; 82652; 82962; 83735; 84153; 85027; 85610; 86780; 86803; 87389; 87491; 87529; 87591; 87661; J0475